=== PATIENT | male | born 1960 | race Caucasian/White ===

== ENCOUNTER 2023-05-19 09:21 | Outpatient (CLI) | payer MEDICARE, BC, SELFPAY | END 2023-05-19 09:22 | disposition home or self-care (01) | LOC: INJ CL 09:25 | PROVIDERS: Visit Provider Family Medicine | DX: M54.16 Radiculopathy, lumbar region (principal); M51.36 Other intervertebral disc degeneration, lumbar region | CPT/HCPCS: 62323; J0702; Q9966 ==

== ENCOUNTER 2023-06-02 12:50 | Outpatient (CLI) | payer MEDICARE, BC, SELFPAY ==
--- NOTE | 2023-06-02 13:00 | CT_ITS ---
Patient: JEAN-CLAUDE KHAN Facility:?[facility] Patient ID:?[id number] Site Patient ID:?[id number]. Site :?[id number] Study:?CT-Chest w/o-06/02/2023 1:07:30 PM Ordering Physician:Ike Fontaine Final Report: Indication: Possible nodule Technique: Noncontrast CT chest Please note that all CT scans at this facility use dose modulation, iterative reconstruction, and/or weight-based dosing when appropriate to reduce radiation dose to as low as reasonably achievable. Comparison: X-ray 05/21/2023 Findings: Mildly displaced fractures of the left lateral 7th and 8th ribs are present. Small left pleural effusion is present. The left kidney is either ectopic or absent. Simple cyst right kidney. Normal adrenal glands. Extensive atherosclerotic changes. No adenopathy. Visualized thyroid normal. No vertebral body compression fracture. Emphysema. Biapical pleural-parenchymal scarring. No pneumothorax. No pulmonary edema. Tiny nodular densities within the right lung apex. Ill-defined nodular density left upper lobe measuring 5.1 millimeters, 05/30. Consolidative density within the inferior lingula representing a combination of airspace and reticular opacification. Impression: Fractures of the left 7th and 8th ribs. Mild extrapleural thickening without pneumothorax. Small left pleural effusion. Dense parenchymal densities within the inferior lingula could represent inflammation although short-term follow-up in 1 month recommended. Ill-defined nodular density within the left upper lobe measuring 5.1 millimeters. Follow-up in 6 months recommended. Please note that all CT scans at this facility use dose modulation, iterative reconstruction, and/or weight-based dosing when appropriate to reduce radiation dose to as low as reasonably achievable. Dictated by Donovan Haney MD @ 06/03/2023 8:52:18 AM Signed by:?Donovan Haney MD @06/03/2023 8:52:18 AM (Electronic Signature)
== END 2023-06-02 12:51 | disposition home or self-care (01) ==
PROVIDERS: PCP Nurse Practitioner Family; Visit Provider Nurse Practitioner Family
DX: R93.89 Abnormal findings on diagnostic imaging of other specified body structures (principal); S22.42XA Multiple fractures of ribs, left side, initial encounter for closed fracture; J90 Pleural effusion, not elsewhere classified; R91.8 Other nonspecific abnormal finding of lung field; F17.200 Nicotine dependence, unspecified, uncomplicated
CPT/HCPCS: 71250

== ENCOUNTER 2023-08-11 10:36 | Outpatient (CLI) | payer MEDICARE, BC, SELFPAY | END 2023-08-11 10:37 | disposition home or self-care (01) | LOC: INJ CL 10:37 | PROVIDERS: PCP Nurse Practitioner Family; Visit Provider Family Medicine | DX: M54.16 Radiculopathy, lumbar region (principal); M51.36 Other intervertebral disc degeneration, lumbar region | CPT/HCPCS: 64483; J1100; Q9966 ==

== ENCOUNTER 2023-12-24 13:37 | Outpatient (CLI) | payer MEDICARE, BC, SELFPAY ==
--- NOTE | 2023-12-24 14:00 | CRLHL7_ITS ---
For Patients: As a result of the Century Cures Act, medical imaging exams and procedure reports are released immediately into your electronic medical record. You may view this report before your referring provider. If you have questions, please contact your health care provider. Indication: Solitary pulmonary nodule Technique: Noncontrast CT chest Please note that all CT scans at this facility use dose modulation, iterative reconstruction, and/or weight-based dosing when appropriate to reduce radiation dose to as low as reasonably achievable. Comparison: 06/02/2023 Findings: Interval clearing opacities from the lingula compared to the prior study. Underlying COPD/emphysema. Stable nodular density left upper lobe measuring 5 millimeters. Biapical pleural-parenchymal scarring. Vascular calcifications. No adenopathy. Simple cyst right kidney. Left kidney not visualized. No fracture. Impression: Clearing of lingular infiltrate. Stable 5 millimeter left upper lobe nodule. One year follow-up low-dose CT chest recommended. COPD/emphysema. Please note that all CT scans at this facility use dose modulation, iterative reconstruction, and/or weight-based dosing when appropriate to reduce radiation dose to as low as reasonably achievable. Dictated by Donvoan Haney MD @ 12/25/2023 4:23:18 PM (Electronically Signed)
== END 2023-12-24 13:38 | disposition home or self-care (01) ==
LOC: CT 13:38
PROVIDERS: PCP Nurse Practitioner Family; Visit Provider Nurse Practitioner Family
DX: R91.1 Solitary pulmonary nodule (principal); J44.9 Chronic obstructive pulmonary disease, unspecified; Z72.0 Tobacco use
CPT/HCPCS: 71250

== ENCOUNTER 2024-02-15 14:47 | Outpatient (CLI) | payer MEDICARE, BC, SELFPAY | END 2024-02-15 14:48 | disposition home or self-care (01) | PROVIDERS: PCP Nurse Practitioner Family; Visit Provider Nurse Practitioner Family | DX: R20.2 Paresthesia of skin (principal); M25.50 Pain in unspecified joint; Z13.21 Encounter for screening for nutritional disorder | CPT/HCPCS: 80053; 82607; 84443; 84550; 85651; 86038; 86140; 86200; 86431; 86812 ==

== ENCOUNTER 2024-08-02 09:09 | Outpatient (CLI) | payer MEDICARE, BC, SELFPAY | END 2024-08-02 09:10 | disposition home or self-care (01) | LOC: INJ CL 09:11 | PROVIDERS: PCP Nurse Practitioner Family; Visit Provider Family Medicine | DX: M54.16 Radiculopathy, lumbar region (principal); M51.369 Other intervertebral disc degeneration, lumbar region without mention of lumbar back pain or lower extremity pain | CPT/HCPCS: 64483; J1100; Q9966 ==

== ENCOUNTER 2024-09-07 13:13 | Outpatient (CLI) | payer MEDICARE, BC, SELFPAY ==
--- NOTE | 2024-09-07 13:30 | CRLHL7_ITS ---
For Patients: As a result of the Cures Act, medical imaging exams and procedure reports are released immediately into your electronic medical record. You may view this report before your referring provider. If you have questions, please contact your health care provider. INDICATION: Lumbar radiculopathy TECHNIQUE: 3-view lumbar spine. COMPARISON: 11/08/2020 FINDINGS: Dense vascular calcifications. No vertebral body compression fracture. Anterior spurring L3-4 and L1-2. No spondylolisthesis. Facet degeneration L4-5. IMPRESSION: Discogenic spurring L3-4 and L1-2, not significantly changed. Facet degeneration lower lumbar spine also similar. No acute findings. Dictated by Donovan Haney MD @ 09/07/2024 4:03:34 PM (Electronically Signed)
--- NOTE | 2024-09-07 13:45 | CRLHL7_ITS ---
For Patients: As a result of the Century Cures Act, medical imaging exams and procedure reports are released immediately into your electronic medical record. You may view this report before your referring provider. If you have questions, please contact your health care provider. INDICATION: Low back pain. COMPARISON: 09/07/2024. TECHNIQUE: Sagittal T1, T2, and STIR sequences. Axial T1 and T2 weighted sequences. FINDINGS: Normal vertebral body alignment. No fractures. No vertebral body loss of height. No spondylolisthesis. No ligamentous injury. Normal marrow signal. No suspicious osseous lesions. Normal conus terminates at L1-2. T12-L1 L1-2: No spinal canal neural foraminal narrowing. L2-3: No spinal canal or neural foraminal narrowing. L3-4: Annular bulging. No narrowing of spinal canal. No neural foraminal narrowing. L4-5: Mild disc degeneration and posterior disc bulge. No narrowing of spinal canal. No neural foraminal narrowing. Mild facet arthropathy. L5-S1: No narrowing of the spinal canal. No impingement of the traversing S1 nerve roots. No neural foraminal narrowing. Normal visualized SI joints. Normal paraspinal soft tissues. IMPRESSION: 1. Normal alignment. No fractures 2. Mild lumbar spondylosis 3. No spinal canal or neural foraminal narrowing at all levels. Dictated by Sameer Luna MD @ 09/10/2024 7:43:41 AM (Electronically Signed)
== END 2024-09-07 13:14 | disposition home or self-care (01) ==
LOC: RAD 13:14
PROVIDERS: PCP Nurse Practitioner Family; Visit Provider Family Medicine
DX: M54.16 Radiculopathy, lumbar region (principal); M47.896 Other spondylosis, lumbar region; M48.061 Spinal stenosis, lumbar region without neurogenic claudication; M51.369 Other intervertebral disc degeneration, lumbar region without mention of lumbar back pain or lower extremity pain; M54.50 Low back pain, unspecified
CPT/HCPCS: 72100; 72148

== ENCOUNTER 2025-02-13 12:45 | Outpatient (CLI) | payer MEDICARE, BC, SELFPAY ==
--- NOTE | 2025-02-13 13:00 | CRLHL7_ITS ---
For Patients: As a result of the Cures Act, medical imaging exams and procedure reports are released immediately into your electronic medical record. You may view this report before your referring provider. If you have questions, please contact your health care provider. INDICATION: Lung cancer screening. History of smoking. High risk patient with greater than 40+ pack-year smoking history. TECHNIQUE: Low-dose lung cancer screening non-contrast CT chest. Dose reduction techniques were used. COMPARISON: 12/24/2023 FINDINGS: NODULES: Stable 5 millimeter left upper lobe pulmonary nodule. Also stable 2 millimeter nodule right upper lobe. LUNGS AND PLEURA: COPD/emphysema. Biapical pleural-parenchymal scarring. MEDIASTINUM: No adenopathy. CORONARY ARTERY CALCIFICATION: Severe. LIMITED UPPER ABDOMEN: Stable incidental right renal cyst measures 1.9 cm. Left kidney is not present in the left renal fossa. Vascular calcifications. Small hiatal hernia. MUSCULOSKELETAL: No acute fracture. No intrinsic osseous lesion. IMPRESSION: Stable pulmonary nodules. LUNG-RADS CATEGORY: 2: Benign. RADIOLOGIST RECOMMENDATION: Continue annual screening, if eligible, with low-dose CT chest in 12 months. Please note that all CT scans at this facility use dose modulation, iterative reconstruction, and/or weight-based dosing when appropriate to reduce radiation dose to as low as reasonably achievable. Dictated by Donovan Haney MD @ 02/14/2025 10:23:39 AM (Electronically Signed)
== END 2025-02-13 12:46 | disposition home or self-care (01) ==
LOC: CT 12:46
PROVIDERS: PCP Nurse Practitioner Family; Visit Provider Nurse Practitioner Family
DX: Z12.2 Encounter for screening for malignant neoplasm of respiratory organs (principal); Z87.891 Personal history of nicotine dependence; R91.8 Other nonspecific abnormal finding of lung field; J43.9 Emphysema, unspecified; I25.10 Atherosclerotic heart disease of native coronary artery without angina pectoris; N28.1 Cyst of kidney, acquired; K44.9 Diaphragmatic hernia without obstruction or gangrene
CPT/HCPCS: 71271